=== PATIENT | female | born 1965 | race Two or more races ===

== ENCOUNTER 2016-11-06 08:48 | Day surgery (SDC) | payer MEDICAID ==
[~2016-11-06 08:48] MED LIST: PROPOFOL INJ 200 MG/20 ML VIAL IV ONE
[2016-11-06 12:02] VITALS: BP 101/74
--- NOTE | 2016-11-06 14:56 | Operative Report ---
Operative Report DATE OF SURGERY: 11/06/16 Operative Report: The risks, benefits and alternatives of the procedure including risks of bleeding, perforation requiring surgery are explained to the patient detail and informed consent is obtained. Patient is placed in a left lateral decubital position and brought back to the endoscopy suite. Timeout is called. Propofol administered. A rectal examination was done which did not reveal any masses, tears or fissures. An Olympus video scope was inserted into the patient's rectum. Keeping the lumen in sight at all times the scope was then gradually advanced all the way to the cecum. The cecum is identified by the usual anatomical landmarks including the ileocecal valve as well as the appendiceal office. Photodocumentation was obtained. Prep is good. The scope was then sequentially pulled back via the various segments of the colon including the ascending colon, hepatic flexure transverse colon, splenic flexure, descending colon and finally into the rectosigmoid portions of the colon. Retroflexion maneuvers performed. The risks benefits and alternatives of the procedure explained to the patient in detail and informed consent is obtained that GIF Olympus video scope was inserted into the patient's mouth and hypopharynx the esophagus is identified intubated and insufflated the scope was then advanced through the esophagus stomach and duodenum retroflexion maneuver is done the esophagus stomach and first and second portions of the duodenum examined PREOPERATIVE DIAGNOSIS: Gastroesophageal reflux disease, epigastric pain. Rectal bleeding POSTOPERATIVE DIAGNOSIS: Right-sided colitis status post biopsy. Gastritis status post biopsy. Esophagitis OPERATION: Colonoscopy with biopsy. EGD with biopsy SURGEON: PETE DAMON ANESTHESIA: LMAC TISSUE REMOVED OR ALTERED: Right colon Specimens obtained. Gastric specimens obtained COMPLICATIONS: None. ESTIMATED BLOOD LOSS: none. INTRAOPERATIVE FINDINGS: As described above. Endoscopy did not show any masses , AVMs, diverticulosis. PROCEDURE: Patient tolerated the procedure well. No immediate postprocedure complications are noted. Patient is discharged in good condition. Discharge date 11/06/2016. Discharge diet: Regular. Discharge activity: Regular. Patient does have a 2-3 week follow-up to discuss findings. We'll await on biopsies. Surveillance colonoscopy in 7-10 years. Patient is instructed to call the office or proceed to the emergency room should there be any further problems or questions.
== END 2016-11-06 11:45 | disposition home or self-care (01) ==
LOC: END 08:48
PROVIDERS: ATTEND Internal Medicine Gastroenterology
PROC: 0DBF8ZX Excision of Right Large Intestine, Via Natural or Artificial Opening Endoscopic, Diagnostic (ICD-10-PCS; 2016-11-06)
PROC: 0DB68ZX Excision of Stomach, Via Natural or Artificial Opening Endoscopic, Diagnostic (ICD-10-PCS; principal; 2016-11-06 11:00)
PROC: 0DB58ZX Excision of Esophagus, Via Natural or Artificial Opening Endoscopic, Diagnostic (ICD-10-PCS; 2016-11-06 11:00)
DX: K29.50 Unspecified chronic gastritis without bleeding (principal); K52.9 Noninfective gastroenteritis and colitis, unspecified; K21.0 Gastro-esophageal reflux disease with esophagitis; K62.5 Hemorrhage of anus and rectum; M79.7 Fibromyalgia; F17.210 Nicotine dependence, cigarettes, uncomplicated; R73.03 Prediabetes; J45.20 Mild intermittent asthma, uncomplicated; I10 Essential (primary) hypertension; Z79.899 Other long term (current) drug therapy; Z79.51 Long term (current) use of inhaled steroids
CPT/HCPCS: 43239; 45380; 88342 ×2; 88305 ×2; J2704; 740